=== PATIENT | female | born 1935 | race Caucasian/White ===

== ENCOUNTER 2016-10-10 09:42 | Emergency (ER) | payer MEDICARE, BC ==
--- NOTE | 2016-10-10 10:43 | CT ---
EXAMINATION TYPE: CT brain wo con DATE OF EXAM: 10/10/2016 COMPARISON: NONE HISTORY: Headache for weeks. CT DLP: 999.7 mGycm. Automated Exposure Control for Dose Reduction was Utilized. TECHNIQUE: CT scan of the head is performed without contrast. FINDINGS: There is no acute intracranial hemorrhage or midline shift identified. There is diffuse v entricular and sulcal prominence consistent with diffuse age-related cerebral atrophy. There are con fluent areas of low-attenuation in the periventricular white matter most consistent with chronic smal l vessel ischemic change. The visualized sinuses are clear. Calcification of the intracranial vasc ulature is noted. Right globe prosthesis and postsurgical change is noted. There is atrophy of the pr oximal extraocular muscles at the myotendinous junctions. IMPRESSION: 1. No acute intracranial hemorrhage or midline shift. There is diffuse age-related cerebral atrophy and chronic small vessel ischemic change noted. 2. Calcific atheromatous changes of the intracranial vasculature.
--- NOTE | 2016-10-10 10:55 | ED ---
Headache HPI - General Chief Complaint: Headache Stated Complaint: headache Time Seen by Provider: 10/10/16 10:01 Mode of arrival: ambulatory Limitations: no limitations - History of Present Illness Initial Comments: This 80-year-old white female presents with a complaint of a headache. It is on the left side of her head and has been present for approximately 10 days. There's been fairly persistent but also intermittent in nature. It is not currently present. She denies any nausea, vomiting, fevers, neck pain, chest pain, or shortness of breath. She denies any history of headaches. Her blood pressure has been under control. She does state that she normally is quite healthy and does not take any medications and has no medical conditions. She's never had any cancer in the past. She is worried about the possibility of a brain mass. She states that the headache is mild when it comes on. She normally will take some ibuprofen for it and this seems to work. No other complaints or modifying factors. She also was worried if this could be related to her eyes and saw her telemedicine physician yesterday and they did not find any abnormalities. She denies any problems with speech, problems with vision, problems with coordination, or problems with ambulation. She states that she was reading on the Internet and got quite nervous regarding headaches. - Related Data Home Medications Medication Instructions Recorded Confirmed Aspirin/Acetaminophen/Caffeine 2 tab PO BID PRN 10/10/16 10/10/16 [Excedrin Migraine Caplet] Cholecalciferol [Vitamin D3] 1,000 unit PO PC-SUPPER 10/10/16 10/10/16 Esomeprazole Magnesium [NexIUM 20 mg PO PC-SUPPER 10/10/16 10/10/16 24Hr] Ibuprofen [Advil] 600 mg PO Q6H PRN 10/10/16 10/10/16 Multivitamins, Thera [Multivitamin 1 tab PO PC-SUPPER 10/10/16 10/10/16 (formulary)] Allergies Allergy/AdvReac Type Severity Reaction Status Date / Time No Known Allergies Allergy Verified 10/10/16 10:15 Review of Systems ROS Statement: Those systems with pertinent positive or pertinent negative responses have been documented in the HPI. ROS Other: All systems not noted in ROS Statement are negative. Past Medical History Past Medical History: No Reported History History of Any Multi-Drug Resistant Organisms: None Reported Past Surgical History: Cholecystectomy, Orthopedic Surgery Additional Past Surgical History / Comment(s): eye. ovary Past Psychological History: No Psychological Hx Reported Smoking Status: Never smoker Past Alcohol Use History: None Reported Past Drug Use History: None Reported General Exam - General Exam Comments Initial Comments: GENERAL: The patient is well nourished and well hydrated. VITAL SIGNS: Heart rate, blood pressure, respiratory rate reviewed as recorded in nurse's notes. EYES: Pupils are round and reactive. Extraocular movements are intact. No conjunctival / lid redness or swelling. ENT: No external evidence of injury, swelling, or ecchymosis. Airway is patent. Throat is clear. There is no scalp tenderness noted. NECK: Nontender. No swelling or evidence of injury. No subcutaneous emphysema. Trachea is midline. No thyroid mass. HEART: Regular rate and rhythm. Good peripheral pulses. LUNGS/CHEST: Breath sounds clear and equal bilaterally. No rales, rhonchi, or wheezes. No ecchymosis, subcutaneous emphysema, or tenderness. ABDOMEN: Abdomen soft without tenderness. No palpable masses or organomegaly. No peritoneal signs. No abdominal wall swelling or ecchymosis. EXTREMITIES: No extremity tenderness. Normal muscle tone and function. No thoracolumbar tenderness. NEUROLOGIC: Sensation is grossly intact. Cranial nerve exam reveals face is symmetrical, tongue is midline, speech is clear. SKIN: No abrasions or ecchymosis is noted. No induration or masses noted. PSYCHIATRIC: Alert and oriented. Appropriate behavior and judgment. Limitations: no limitations Course Vital Signs 10/10/16 09:45 Temperature 98.6 F Pulse Rate 91 Respiratory 20 Rate Blood Pressure 145/79 O2 Sat by Pulse 96 Oximetry Medical Decision Making - Medical Decision Making The patient was seen and examined. All diagnostics were reviewed. She had a computed tomography scan of her brain which showed some age-related changes and some after atherosclerosis but no acute processes noted. The exact cause of her headache is not definitively determined but no evidence of brain masses currently noted. It is felt as though she is stable for follow-up with her primary physician and may continue with the ibuprofen Disposition Clinical Impression: Headache Disposition: HOME SELF-CARE Condition: Good Instructions: Acute Headache (ED) Referrals: Amy Burden DO [Primary Care Provider] - 1-2 days Time of Disposition: 10:54
[2016-10-10 11:10] VITALS: BP 150/75; PULSE 76; RESP 18; TEMP 97.3
== END 2016-10-10 11:09 | disposition home or self-care (01) ==
LOC: EC 09:42
DX: R51 Headache (principal)
CPT/HCPCS: 70450; 99284

== ENCOUNTER → 2016-10-29 | Outpatient (CLI) | payer MEDICARE ==
--- NOTE | 2016-10-30 10:00 | MM ---
Reason for exam: screening (asymptomatic). Last mammogram was performed 1 year and 2 months ago. History: Family history of breast cancer in mother at age 80. Benign lumpectomy of the right breast. Physical Findings: A clinical breast exam by your physician is recommended on an annual basis and results should be correlated with mammographic findings. MG Screening Mammo w CAD Bilateral CC and MLO view(s) were taken. Prior study comparison: September 04, 2015, mammogram. August 22, 2014, mammogram. There are scattered fibroglandular densities. Finding: There are typically benign coarse calcifications in the central position of the right breast consistent with fibroadenoma. No significant changes in finding since September 04, 2015 and August 22, 2014. ASSESSMENT: Benign, BI-RAD 2 RECOMMENDATION: Routine screening mammogram of both breasts in 1 year.
== END | disposition home or self-care (01) ==
LOC: RADMAMWWP 09:15
PROVIDERS: ATTEND Family Medicine
DX: Z12.31 Encounter for screening mammogram for malignant neoplasm of breast (principal)

== ENCOUNTER 2017-09-27 07:12 | Emergency (ER) | payer MEDICARE ==
--- NOTE | 2017-09-27 07:37 | ED ---
General Adult HPI - General Chief complaint: Chest Pain Stated complaint: Chest pains Time Seen by Provider: 09/27/17 07:21 Source: patient, RN notes reviewed, old records reviewed Mode of arrival: ambulatory Limitations: no limitations - History of Present Illness Initial comments: 81-year-old female presents for evaluation of left-sided chest pain. Patient's symptoms began 3 days prior to arrival. Initially patient had left-sided back pain and left-sided chest pain. This was moderate in nature. She had several episodes of vomiting and then her pain became only left-sided chest. Patient denied any arm or neck pain. Denied diaphoresis. She had 3 total episodes of vomiting between evening of Friday morning. She is chest pain-free on the day of presentation. She has no symptoms. Denies dyspnea. Denies fever or chills. She states she had only a mild cough. No history of CAD. No history hypertension diabetes. She has remote history of tobacco use. - Related Data Home Medications Medication Instructions Recorded Confirmed Aspirin/Acetaminophen/Caffeine 2 tab PO BID PRN 10/10/16 10/10/16 [Excedrin Migraine Caplet] Cholecalciferol [Vitamin D3] 1,000 unit PO PC-SUPPER 10/10/16 10/10/16 Esomeprazole Magnesium [NexIUM 20 mg PO PC-SUPPER 10/10/16 10/10/16 24Hr] Ibuprofen [Advil] 600 mg PO Q6H PRN 10/10/16 10/10/16 Multivitamins, Thera [Multivitamin 1 tab PO PC-SUPPER 10/10/16 10/10/16 (formulary)] Previous Rx's Medication Instructions Recorded Azithromycin [Zithromax Z-pack] 0 mg PO DIRECTED #6 tab 09/27/17 Allergies Allergy/AdvReac Type Severity Reaction Status Date / Time No Known Allergies Allergy Verified 10/10/16 10:15 Review of Systems ROS Statement: Those systems with pertinent positive or pertinent negative responses have been documented in the HPI. ROS Other: All systems not noted in ROS Statement are negative. Past Medical History Past Medical History: No Reported History History of Any Multi-Drug Resistant Organisms: None Reported Past Surgical History: Cholecystectomy, Orthopedic Surgery Additional Past Surgical History / Comment(s): eye, R FEMUR. ovary Past Psychological History: No Psychological Hx Reported Smoking Status: Never smoker Past Alcohol Use History: None Reported, Occasional Past Drug Use History: None Reported General Exam Limitations: no limitations General appearance: alert, in no apparent distress Head exam: Present: atraumatic, normocephalic Eye exam: Present: normal appearance, PERRL ENT exam: Present: normal exam Neck exam: Present: normal inspection. Absent: tenderness, meningismus Respiratory exam: Present: normal lung sounds bilaterally. Absent: respiratory distress, wheezes, rales Cardiovascular Exam: Present: regular rate, normal rhythm GI/Abdominal exam: Present: soft. Absent: distended, tenderness, guarding, rebound Back exam: Present: normal inspection, full ROM Neurological exam: Present: alert, oriented X3, CN II-XII intact. Absent: motor sensory deficit Skin exam: Present: warm, dry, intact. Absent: cyanosis, diaphoretic Course Vital Signs 09/27/17 09/27/17 09/27/17 07:17 08:48 09:40 Temperature 97.9 F 98.9 F Pulse Rate 83 83 82 Respiratory 16 18 18 Rate Blood Pressure 133/75 129/60 128/68 O2 Sat by Pulse 92 L 93 L 94 L Oximetry EKG Findings - EKG Comments: EKG Findings:: EKG: Normal sinus rhythm, rate of 82, NC interval 150, QRS duration 98, QTC 422, no ST segment elevation or depression Medical Decision Making - Medical Decision Making 81-year-old female presenting with left-sided chest pain. Pain began 3 days prior to arrival. It is resolved at the time of my evaluation. She did report a mild cough and on reevaluation admitted to some subjective fever and chills. The symptoms are all resolved. She has no complaints at the time my evaluation. EKG is nonischemic. Chest x-ray does show a large left-sided pneumonia. White count is elevated at 17,000, hemoglobin stable. Patient has mildly EST ALT and alkaline phosphatase elevation however she is status post cholecystectomy and has no right upper quadrant pain. Troponin and BNP are negative. CT is obtained as there is concern for wedge infarct secondary to pulmonary embolism, this is negative, does show pneumonia however this is likely chronic in nature. Patient is afebrile in the emergency department. She is given a dose of antibiotics. She is offered observation for continued IV antibiotics and pulmonary consult. She declines. She would prefer outpatient follow-up. She is started on azithromycin for community-acquired pneumonia. She promises to return with any worsening or changing symptoms. She is also given outpatient [facility] follow-up. - Lab Data Result diagrams: 09/27/17 07:40 09/27/17 07:40 Lab Results 09/27/17 09/27/17 09/27/17 Range/Units 07:40 07:40 07:40 WBC 17.8 H (3.8-10.6) k/uL RBC 4.31 (3.80-5.40) m/uL Hgb 13.0 (11.4-16.0) gm/dL Hct 39.6 (34.0-46.0) % MCV 91.8 (80.0-100.0) fL MCH 30.1 (25.0-35.0) pg MCHC 32.8 (31.0-37.0) g/dL RDW 13.9 (11.5-15.5) % Plt Count 287 (150-450) k/uL Neutrophils % 91 % Lymphocytes % 5 % Monocytes % 2 % Eosinophils % 1 % Basophils % 0 % Neutrophils # 16.2 H (1.3-7.7) k/uL Lymphocytes # 1.0 (1.0-4.8) k/uL Monocytes # 0.3 (0-1.0) k/uL Eosinophils # 0.2 (0-0.7) k/uL Basophils # 0.0 (0-0.2) k/uL PT (9.0-12.0) sec INR (<1.2) APTT (22.0-30.0) sec Sodium 137 (137-145) mmol/L Potassium 3.4 L (3.5-5.1) mmol/L Chloride 101 (98-107) mmol/L Carbon Dioxide 26 (22-30) mmol/L Anion Gap 10 mmol/L BUN 26 H (7-17) mg/dL Creatinine 1.01 (0.52-1.04) mg/dL Est GFR (CKD-EPI)AfAm 60 (>60 ml/min/1.73 sqM) Est GFR (CKD-EPI)NonAf 52 (>60 ml/min/1.73 sqM) Glucose 101 H (74-99) mg/dL Plasma Lactic Acid Niels (0.7-2.0) mmol/L Calcium 8.9 (8.4-10.2) mg/dL Magnesium 1.9 (1.6-2.3) mg/dL Total Bilirubin 0.9 (0.2-1.3) mg/dL AST 51 H (14-36) U/L ALT 110 H (9-52) U/L Alkaline Phosphatase 162 H (38-126) U/L Total Creatine Kinase 40 (30-135) U/L CK-MB (CK-2) 1.8 (0.0-2.4) ng/mL CK-MB (CK-2) Rel Index 4.5 Troponin I <0.012 (0.000-0.034) ng/mL NT-Pro-B Natriuret Pep pg/mL Total Protein 5.8 L (6.3-8.2) g/dL Albumin 3.2 L (3.5-5.0) g/dL Lipase 48 (23-300) U/L 09/27/17 09/27/17 09/27/17 Range/Units 07:40 07:40 09:53 WBC (3.8-10.6) k/uL RBC (3.80-5.40) m/uL Hgb (11.4-16.0) gm/dL Hct (34.0-46.0) % MCV (80.0-100.0) fL MCH (25.0-35.0) pg MCHC (31.0-37.0) g/dL RDW (11.5-15.5) % Plt Count (150-450) k/uL Neutrophils % % Lymphocytes % % Monocytes % % Eosinophils % % Basophils % % Neutrophils # (1.3-7.7) k/uL Lymphocytes # (1.0-4.8) k/uL Monocytes # (0-1.0) k/uL Eosinophils # (0-0.7) k/uL Basophils # (0-0.2) k/uL PT 10.5 (9.0-12.0) sec INR 1.1 (<1.2) APTT 27.7 (22.0-30.0) sec Sodium (137-145) mmol/L Potassium (3.5-5.1) mmol/L Chloride (98-107) mmol/L Carbon Dioxide (22-30) mmol/L Anion Gap mmol/L BUN (7-17) mg/dL Creatinine (0.52-1.04) mg/dL Est GFR (CKD-EPI)AfAm (>60 ml/min/1.73 sqM) Est GFR (CKD-EPI)NonAf (>60 ml/min/1.73 sqM) Glucose (74-99) mg/dL Plasma Lactic Acid Niels 1.5 (0.7-2.0) mmol/L Calcium (8.4-10.2) mg/dL Magnesium (1.6-2.3) mg/dL Total Bilirubin (0.2-1.3) mg/dL AST (14-36) U/L ALT (9-52) U/L Alkaline Phosphatase (38-126) U/L Total Creatine Kinase (30-135) U/L CK-MB (CK-2) (0.0-2.4) ng/mL CK-MB (CK-2) Rel Index Troponin I (0.000-0.034) ng/mL NT-Pro-B Natriuret Pep 991 pg/mL Total Protein (6.3-8.2) g/dL Albumin (3.5-5.0) g/dL Lipase (23-300) U/L Disposition Clinical Impression: Community acquired pneumonia Disposition: HOME SELF-CARE Condition: Good Instructions: Pneumonia (ED) Prescriptions: Azithromycin [Zithromax Z-pack] 0 mg PO DIRECTED #6 tab Is patient prescribed a controlled substance at d/c from ED?: No Referrals: None,Stated [Primary Care Provider] - 1-2 days Amy Burden DO [REFERRING] - 1-2 days Angela Stein MD [STAFF PHYSICIAN] - 1-2 days Time of Disposition: 10:28
[2017-09-27 07:50] LABS: Basophils % (A) 0 %; Eosinophils # (A) 0.2 k/uL (0-0.7); Eosinophils % (A) 1 %; HCT 39.6 % (34.0-46.0); Lymphocytes % (A) 5 %; MCH 30.1 pg (25.0-35.0); MCHC 32.8 g/dL (31.0-37.0); MCV 91.8 fL (80.0-100.0); Mean Platelet Volume 7.7; Monocytes # (A) 0.3 k/uL (0-1.0); Monocytes % (A) 2 %; Neutrophils # (A) 16.2 k/uL (1.3-7.7); Neutrophils % (A) 91 %; Platelet Count 287 k/uL (150-450); RBC 4.31 m/uL (3.80-5.40); RDW 13.9 % (11.5-15.5); WBC 17.8 k/uL (3.8-10.6)
[2017-09-27 07:59] LABS: INR 1.1 (<1.2); Partial Thromboplastin Time 27.7 sec (22.0-30.0); Prothrombin Time 10.5 sec (9.0-12.0)
[2017-09-27 08:00] LABS: Albumin 3.2 g/dL (3.5-5.0); Calcium 8.9 mg/dL (8.4-10.2); Magnesium 1.9 mg/dL (1.6-2.3); Potassium 3.4 mmol/L (3.5-5.1); Total Bilirubin 0.9 mg/dL (0.2-1.3); Total Protein 5.8 g/dL (6.3-8.2)
[2017-09-27 08:08] LABS: Creatine Kinase 40 U/L (30-135)
[2017-09-27 08:21] LABS: Creatine Kinase MB 1.8 ng/mL (0.0-2.4); Troponin I <0.012 ng/mL (0.000-0.034)
--- NOTE | 2017-09-27 09:19 | XR ---
EXAMINATION TYPE: XR chest 2V DATE OF EXAM: 09/27/2017 HISTORY: Chest Pain. REFERENCE: NONE. FINDINGS: The lungs are overinflated. There is infiltrate involving the left upper lobe and left ling isaac. This likely represents pneumonia. The heart is not enlarged. Pleural spaces are clear. IMPRESSION: LEFT UPPER LOBE PNEUMONIA.
[2017-09-27] MEDS ORDERED: cefTRIAXone IN SWFI 1,000 MG/10 ML SYRINGE IVP STA (09:25)
[2017-09-27] MEDS ORDERED: AZITHROMYCIN 500 MG in DEXTROSE 5% IN WATER 250 ML IVPB STA ×2 (09:25)
--- NOTE | 2017-09-27 10:01 | CT ---
EXAMINATION TYPE: CT angio chest DATE OF EXAM: 09/27/2017 9:52 AM COMPARISON: None. HISTORY: Chest pain CT DLP: 145.20 mGycm Automated exposure control for dose reduction was used. CONTRAST: CTA scan of the thorax is performed with IV Contrast, patient injected with 80 ml mL of Isovue 370, p ulmonary embolism protocol. . FINDINGS: There is consolidation of the left upper lobe with associated bronchiectatic change. I coul d not exclude some degree of pulmonary fibrosis. This extends into the lingula. There is also some pa tchy opacities within the left lower lobe. There is atelectatic change present at the lung bases bila terally. There is also some coarse fibrosis in the apical posterior segment of the right upper lobe. There are emphysematous changes throughout both lungs. There is no significant axillary, internal mammary, mediastinal or hilar adenopathy. There is no evidence of pulmonary embolus. The aorta is normal in caliber without evidence of dissection. There is no pleural or pericardial fluid. The heart is not enlarged. No bony destructive lesion is seen. There are hypertrophic changes in the right AC joint. IMPRESSION: 1. THIS EXAMINATION IS NEGATIVE FOR PULMONARY EMBOLUS. 2. CONSOLIDATION OF THE LEFT UPPER LOBE AND LINGULA. THIS HAS A CHRONIC APPEARANCE. 3. EMPHYSEMATOUS CHANGE.
[2017-09-27 11:00] VITALS: RESP 16
[2017-09-27 12:14] VITALS: BP 128/69; PULSE 78; TEMP 98.7
== END 2017-09-27 12:13 | disposition home or self-care (01) ==
LOC: EC 07:12
DX: J18.9 Pneumonia, unspecified organism (principal); M54.9 Dorsalgia, unspecified; R74.0 Nonspecific elevation of levels of transaminase and lactic acid dehydrogenase [LDH]; R74.8 Abnormal levels of other serum enzymes; Z79.899 Other long term (current) drug therapy
CPT/HCPCS: 36415; 93005; 83880; 80053; 82550; 82553; 83605; 83690; 83735; 84484; 85025; 85610; 87040; 85730; 71046; 71275; 99285; 96365; 96366; 96375; J0456; J0696; Q9967

== ENCOUNTER → 2017-11-17 | Outpatient (CLI) | payer MEDICARE ==
--- NOTE | 2017-11-17 13:47 | MM ---
Reason for exam: screening (asymptomatic). Last mammogram was performed 1 year and 1 month ago. History: Patient is postmenopausal. Family history of breast cancer in maternal aunt and breast cancer in mother at age 80. Benign lumpectomy of the right breast. Physical Findings: A clinical breast exam by your physician is recommended on an annual basis and results should be correlated with mammographic findings. MG 3D Screening Mammo W/Cad Bilateral CC and MLO view(s) were taken. Prior study comparison: October 29, 2016, bilateral MG screening mammo w CAD. September 04, 2015, mammogram. The breast tissue is heterogeneously dense. This may lower the sensitivity of mammography. There are benign appearing dystrophic round calcifications bilaterally. There is no discrete abnormality. ASSESSMENT: Benign, BI-RAD 2 RECOMMENDATION: Routine screening mammogram of both breasts in 1 year.
== END | disposition home or self-care (01) ==
LOC: RADMAMWWP 09:40
PROVIDERS: ATTEND Family Medicine
DX: Z12.31 Encounter for screening mammogram for malignant neoplasm of breast (principal)
CPT/HCPCS: 77063; 77067

== ENCOUNTER → 2018-07-27 | Outpatient (CLI) | payer MEDICARE ==
--- NOTE | 2018-07-28 09:40 | CT ---
EXAMINATION TYPE: CT abdomen pelvis w con DATE OF EXAM: 07/27/2018 COMPARISON: None HISTORY: History of ovarian cancer CT DLP: 1067 mGycm Automated exposure control for dose reduction was used. CONTRAST: CT scan of the abdomen pelvis is performed with IV Contrast, patient injected with 100 ml mL of Isovu e 300. FINDINGS- LUNG BASES-interstitial thickening suggest chronic interstitial lung disease.. LIVER/GB-postcholecystectomy changes are noted and there is intrahepatic and extrahepatic biliary seymour ekaterina dilation.. PANCREAS- No gross abnormality is seen. SPLEEN- No gross abnormality is seen. ADRENALS-1 cm indeterminate left adrenal nodule. KIDNEYS/BLADDER-no hydronephrosis. There is a density within the right kidney too small to characteri ze. BOWEL-diverticulosis of the colon. Small hiatal hernia noted. LYMPH NODES- No greater than 1cm abdominal or pelvic lymph nodes areappreciated. OSSEOUS STRUCTURES-postsurgical change involving the right hip. There is multilevel severe degenerati ve disc disease of the vertebral column. There is a scoliosis. OTHER- there is a 1.2 cm soft tissue nodule on axial image 18 anterior to the left lobe of the liver . Fat-containing periumbilical hernia. Atherosclerotic change of the aorta no evidence of aneurysm. IMPRESSION- 1. There is a 1.2 cm soft tissue nodule anterior to the left lobe of the liver on axial image 18. PET scan is recommended to assess for peritoneal implant or adenopathy. No prior exams are available for comparison. 2. Indeterminant 1 cm left adrenal nodule.
== END ==
LOC: RADCTMAIN 09:58
PROVIDERS: ATTEND Internal Medicine Hematology & Oncology
DX: C57.8 Malignant neoplasm of overlapping sites of female genital organs (principal); K76.89 Other specified diseases of liver; E27.8 Other specified disorders of adrenal gland
CPT/HCPCS: 74177; Q9967 ×2

== ENCOUNTER → 2018-07-31 | Outpatient (CLI) | payer MEDICARE ==
--- NOTE | 2018-07-31 12:33 | MR ---
EXAMINATION TYPE: MR abdomen wo/w con DATE OF EXAM: 07/31/2018 COMPARISON: CT abdomen and pelvis July 27, 2018. HISTORY: Mets vs hemangioma, history of ovarian tumor. CONTRAST: Standard multiplanar, multisequence MRI departmental protocol utilizing 6.5 mL intravenous Gadavist g adolinium contrast. Imaging is performed of the abdomen focusing on the liver. FINDINGS: Liver: Gallbladder is surgically absent. There is persistent moderate extrahepatic and [id number] te central intrahepatic biliary dilatation to the ampulla without obvious mass. Common bile duct sonali ures 18 mm coronal image 13 near romy hepatis. Within the liver there is no worrisome solid or cysti c mass identified. Corresponding to CT there is persistent well-defined oval lesion anterior to the l iver indenting the anterior capsule measuring 1.6 x 0.8 cm image 56 series 303. Lesion shows slight T 1 hypointensity and marked low T2 signal. Post contrast images suggest some heterogeneous rim and linda tral type enhancement. There is some additional areas of susceptibility artifact lateral segment left hepatic lobe anteriorly inferiorly seen best near image 254 of the dynamic postcontrast images of un certain etiology, no clips are identified on corresponding CT at this level. Other: Lung bases are grossly clear. Pancreatic duct is seen and upper limits of normal in size. Sple en and both adrenal glands are felt within normal limits. There are a few simple appearing renal cyst s scattered throughout both kidneys. No hydronephrosis or suspicious masses are noted. No suspicious small or large bowel dilatation is seen. There is retroaortic left renal vein which is normal variant . There is dextroconvex scoliosis with multilevel spurring and disc space narrowing in the lumbar spi ne. Endplate changes are present. IMPRESSION: Nonspecific 1.6 cm lesion anterior to the liver should be correlated with old outside shruthi ges if possible. Presence of low T1 and T2 signal suggests a fibrous tumor or etiology should be evi elated with pathology results obtained at time of ovarian excision. Both above recommendations advise d to determine if sampling or excision is necessary.
== END | disposition home or self-care (01) ==
LOC: RADMRIMAIN 07:51
PROVIDERS: ATTEND Internal Medicine Hematology & Oncology
DX: K76.89 Other specified diseases of liver (principal); C57.8 Malignant neoplasm of overlapping sites of female genital organs
CPT/HCPCS: 74183; A9585

== ENCOUNTER → 2018-10-29 | Outpatient (CLI) | payer MEDICARE ==
[2018-10-29 14:07] LABS: ALT 30 U/L (9-52); AST 35 U/L (14-36); African American GFR (CKD) >90 (>60 ml/min/1.73 sqM); Albumin 4.4 g/dL (3.5-5.0); Alkaline Phosphatase 81 U/L (38-126); Anion Gap 9 mmol/L; Blood Urea Nitrogen 13 mg/dL (7-17); Calcium 9.4 mg/dL (8.4-10.2); Carbon Dioxide 29 mmol/L (22-30); Chloride 101 mmol/L (98-107); Glucose 102 mg/dL (74-99); Potassium 4.4 mmol/L (3.5-5.1); Sodium 139 mmol/L (137-145); Total Bilirubin 0.6 mg/dL (0.2-1.3); Total Protein 7.6 g/dL (6.3-8.2)
[2018-10-29 14:16] LABS: Basophils # (A) 0.1 k/uL (0-0.2); Basophils % (A) 1 %; Eosinophils # (A) 0.5 k/uL (0-0.7); Eosinophils % (A) 6 %; HCT 44.4 % (34.0-46.0); HGB 14.6 gm/dL (11.4-16.0); Lymphocytes # (A) 2.4 k/uL (1.0-4.8); Lymphocytes % (A) 26 %; MCH 30.6 pg (25.0-35.0); MCHC 32.8 g/dL (31.0-37.0); MCV 93.3 fL (80.0-100.0); Mean Platelet Volume 7.5; Monocytes # (A) 0.4 k/uL (0-1.0); Monocytes % (A) 4 %; Neutrophils # (A) 5.7 k/uL (1.3-7.7); Neutrophils % (A) 61 %; Platelet Count 298 k/uL (150-450); RBC 4.76 m/uL (3.80-5.40); RDW 14.9 % (11.5-15.5); WBC 9.2 k/uL (3.8-10.6)
--- NOTE | 2018-10-29 15:14 | CT ---
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 CT DLP: 541.50 mGycm CONTRAST: CT scan of the abdomen and pelvis is performed with Oral Contrast and with IV Contrast, patient injec lillie with 100 mL of Isovue 300. FINDINGS: LUNG BASES-: No visible nodule. No infiltrate. Mild basilar fibrotic change. LIVER/GB: The gallbladder is surgically absent No space occupying hepatic lesion. Biliary tree is distended likely related to postsurgical change and patient age. There is a lesion anterior to the le ft hepatic lobe measuring 1 cm x 2.0 cm recently described on MRI of the abdomen dated 07/31/2018. No a dditional lesions noted. PANCREAS: No inflammation. No distinct mass. SPLEEN: No splenic enlargement. No lesion seen. ADRENALS: No nodule. No thickening. KIDNEYS/BLADDER: No hydronephrosis. No nephrolithiasis. No distinct renal mass. Urinary bladder g rossly unremarkable. BOWEL: Normal appendix. Normal bowel caliber. No inflammation. GENITAL ORGANS: No gross abnormality. LYMPH NODES: No greater than 1cm abdominal or pelvic lymph nodes are appreciated. AORTA: No significant abnormality. OSSEOUS STRUCTURES: No significant abnormality is seen. OTHER: No significant additional abnormality is seen. IMPRESSION: 1. No significant change in solid lesion anterior to the left hepatic lobe.
== END | disposition home or self-care (01) ==
LOC: RADCTMAIN 12:28
PROVIDERS: ATTEND Internal Medicine Hematology & Oncology
DX: C57.8 Malignant neoplasm of overlapping sites of female genital organs (principal)
CPT/HCPCS: 80053; 86304; 85025; 74177; 36415; Q9967